=== PATIENT | female | born 1945 | race Caucasian/White ===

== ENCOUNTER 2020-02-14 13:57 | Emergency (ER) | payer MEDICARE ==
[~2020-02-14] VITALS: Ht 165.1 cm; Wt 46.4 kg
[~2020-02-14 13:57] MED LIST: ALBU8.5H8 INH; BUPR75TA8 PO; BUSP5TAB3 PO; CLON-527 PO; DILT120T3 PO
[2020-02-14] MEDS ORDERED: HYDR-4383 PO (16:15)
[2020-02-14] MEDS ORDERED: normal saline 1000ML IV soln IVB ONE (16:30)
[2020-02-14] MEDS ORDERED: HYDROcodone/acetaminophen 10/325mg tab PO ONE (16:30)
--- NOTE | 2020-02-14 17:18 | NUR ---
hr 122,patient wanted to go home reports to RN this is her norm and that she takes diltiazem,Dr. Epperson made aware,MD to contact Pam MCADAMS.
[2020-02-14 17:44] VITALS: BP 144/77
== END 2020-02-14 17:40 | disposition home or self-care (01) ==
LOC: ER 13:57
DX: M54.5 Low back pain (principal); M54.6 Pain in thoracic spine; R53.1 Weakness; Z90.49 Acquired absence of other specified parts of digestive tract; Z79.899 Other long term (current) drug therapy; W18.30XA Fall on same level, unspecified, initial encounter; Y93.89 Activity, other specified; Y92.89 Other specified places as the place of occurrence of the external cause; Y99.8 Other external cause status
CPT/HCPCS: 72128; 72131; 72192; 96360; 99285; J7030